=== PATIENT | male | born 1965 | race Caucasian/White ===

== ENCOUNTER → 2020-04-08 | Outpatient (CLI) | payer BC | END | disposition home or self-care (01) | LOC: LAB SHORT 12:00 → PLD 12:00 | DX: C44.319 Basal cell carcinoma of skin of other parts of face (principal); C44.41 Basal cell carcinoma of skin of scalp and neck | CPT/HCPCS: 88305 ==

== ENCOUNTER 2022-08-12 09:10 | Emergency (ER) | payer BC ==
[~2022-08-12] VITALS: Ht 177.8 cm; Wt 106.0 kg
[2022-08-12 09:36] LABS: BASOPHILS ABSOLUTE AUTO 0.05 K/mm3 (0.00-0.23); BASOPHILS PERCENT AUTO 1 % (0-2); EOSINOPHILS ABSOLUTE AUTO 0.23 K/mm3 (0.00-0.68); EOSINOPHILS PERCENT AUTO 3 % (0-6); Hematocrit 44.5 % (37.0-53.0); Hemoglobin 15.4 g/dL (13.5-17.5); IMMATURE GRAN ABSOLUTE AUTO 0.01 K/mm3 (0.00-0.10); IMMATURE GRAN PERCENT AUTO 0 % (0-1); LYMPHOCYTES ABSOLUTE AUTO 1.59 K/mm3 (0.84-5.20); LYMPHOCYTES PERCENT AUTO 22 % (21-46); MONOCYTES ABSOLUTE AUTO 0.62 K/mm3 (0.16-1.47); MONOCYTES PERCENT AUTO 9 % (4-13); Mean Corpuscular HGB 28.4 pg (26.0-34.0); Mean Corpuscular HGB Conc 34.6 g/dL (31.5-36.5); Mean Corpuscular Volume 82 fL (80-100); Mean Platelet Volume 9.8 fL (9.1-12.4); NEUTROPHILS ABSOLUTE AUTO 4.66 K/mm3 (1.96-9.15); NEUTROPHILS PERCENT AUTO 65 % (41-73); Platelet Count 228 K/mm3 (150-400); RDW Coefficient Variation 13.6 % (11.7-14.2); RDW Standard Deviation 40.1 fL (35.1-46.3); Red Blood Cell Count 5.42 M/mm3 (4.30-5.90); White Blood Cell Count 7.16 K/mm3 (4.00-11.30)
[2022-08-12 09:58] LABS: Albumin, Blood 3.7 g/dL (3.4-5.0); Bilirubin, Total 0.8 mg/dL (0.1-1.0); Bun/Creatinine Ratio 18.3 (12.0-20.0); Calcium, Blood 8.9 mg/dL (8.5-10.1); Creatinine, Blood 0.88 mg/dL (0.60-1.20); Globulin, Blood 3.6 g/dL (2.2-4.0); Potassium, Blood 3.8 mmol/L (3.5-5.5); Total Protein, Blood 7.3 g/dL (6.4-8.2)
[2022-08-12 12:05] LABS: Influenza A, PCR NEGATIVE (NEGATIVE); Influenza B, PCR NEGATIVE (NEGATIVE); Resp Syncytial Virus, PCR NEGATIVE (NEGATIVE); SARS-Cov-2 (COVID-19) PCR, MMC NEGATIVE (NEGATIVE)
== END 2022-08-12 11:56 | disposition short-term general hospital (02) ==
LOC: ER 09:10
PROVIDERS: Emergency Medicine
DX: I63.512 Cerebral infarction due to unspecified occlusion or stenosis of left middle cerebral artery (principal); R29.810 Facial weakness; G81.91 Hemiplegia, unspecified affecting right dominant side
CPT/HCPCS: 0241U; 36415; 70450; 70496; 70498; 71045; 80053; 82947; 85025; 85730; 93005; 93010; J3101; Q9967

== ENCOUNTER → 2023-05-30 | Outpatient (CLI) | payer OTHER | LOC: LAB SHORT 12:46 → LAB 12:46 | DX: C44.612 Basal cell carcinoma of skin of right upper limb, including shoulder (principal) | CPT/HCPCS: 88305 ==

== ENCOUNTER → 2023-06-26 | Outpatient (CLI) | payer SELFPAY | LOC: LAB SHORT 11:17 → LAB 11:17 | DX: C44.612 Basal cell carcinoma of skin of right upper limb, including shoulder (principal) | CPT/HCPCS: 88305 ==

== ENCOUNTER 2024-02-25 09:05 | Emergency (ER) | payer OTHER ==
[~2024-02-25] VITALS: Ht 180.3 cm; Wt 129.3 kg
[~2024-02-25 09:05] MED LIST: ATOR10 PO; Cymbalta20 MG PO; ELIQUIS5 M2 PO; HYDCHL25 PO; LISI5 PO; TAMS.4ER PO
[2024-02-25 09:25] VITALS: BP 146/108
[2024-02-25 11:33] LABS: Influenza A, PCR NEGATIVE (NEGATIVE); Influenza B, PCR NEGATIVE (NEGATIVE); Resp Syncytial Virus, PCR NEGATIVE (NEGATIVE); SARS-Cov-2 (COVID-19) PCR, MMC NEGATIVE (NEGATIVE)
== END 2024-02-25 10:39 | disposition home or self-care (01) ==
LOC: ER 09:05
PROVIDERS: Physician Assistant
DX: R05.9 Cough, unspecified (principal); Z79.01 Long term (current) use of anticoagulants; Z79.899 Other long term (current) drug therapy
CPT/HCPCS: 0241U; 71046; 99283-25

== ENCOUNTER 2024-02-26 10:58 | Day surgery (SDC) | payer OTHER ==
[~2024-02-26] VITALS: Ht 180.3 cm; Wt 125.3 kg
[2024-02-26] VITALS (12 sets, daily range): BP systolic 106–139; BP diastolic 66–97
[2024-02-26] MEDS ORDERED: Lactated Ringer's 1,000 ML IV SCH ×2 (11:25→12:00)
[2024-02-26] MEDS ORDERED: Ropivacaine 0.5% HCl/Pf 123.125 MG,EPINEPHrine HCL 0.25 MG,Ketorolac Tromethamine 15 MG... INFIL SCH (11:25)
[2024-02-26] MEDS ORDERED: Chlorhexidine Mouth Care 15 ML UDC MT SCH (11:25)
[2024-02-26] MEDS ORDERED: CeFAZolin Sodium 3,000 MG in NS 100 ML IV SCH ×2 (11:25→21:30)
[2024-02-26] MEDS ORDERED: OxyCODONE HCL 10 MG TABCR PO SCH (11:25)
[2024-02-26] MEDS ORDERED: Acetaminophen 500 MG Tab PO SCH ×2 (11:25→16:00)
[2024-02-26] MEDS ORDERED: Tranexamic Acid 100 ML IV SCH (11:33)
[2024-02-26] MEDS ORDERED: Bisacodyl 10 MG Supp PR PRN (11:50)
[2024-02-26] MEDS ORDERED: OxyCODONE HCL 5 MG TAB PO PRN ×2 (11:50)
[2024-02-26] MEDS ORDERED: Promethazine HCl 25 MG Tab PO PRN (11:50)
[2024-02-26] MEDS ORDERED: HYDROmorphone HCl/Pf 1MG SYR IV PRN (11:55)
[2024-02-26] MEDS ORDERED: Metoclopramide HCl 5MG / ML 2ML Vial IV PRN (11:55)
[2024-02-26] MEDS ORDERED: DiphenhydrAMINE HCL 25 MG Cap PO PRN (11:55)
[2024-02-26] MEDS ORDERED: FLU VACC TS2024-25(6MOS UP)/PF 45 MCG/0.5 ML SYRINGE IM SCH (11:55)
[2024-02-26] MEDS ORDERED: Ondansetron HCl 2 MG / ML 2ML Vial IV PRN (12:00)
[2024-02-26] MEDS ORDERED: Magnesium Hydroxide Conc 10 ML UDC PO PRN (12:00)
--- NOTE | 2024-02-26 12:03 | NUR ---
Pt. is awaiting a knee replacement in the waiting area. Spouse is present when they both welcomed my visit. Both Pt. 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 Facilitated a life review and update and normalized the Pt. experience. Pt. verbalized that he expected to stay overnight after the procedure. Pt. and spouse both verbalized gratitude for the spiritual care visit.
--- NOTE | 2024-02-26 12:14 | NUR ---
Ambulatory in Day Surgery. History, Chart, Medications and Allergies reviewed before start of procedure. Lungs clear T/O to Auscultation. Patient confirms NPO status and agrees with scheduled surgery. Pre-Op teaching done. Pt verbalizes understanding. Patient States Post-Procedure ride home has been arranged. PT BELONGINGS PLACED UNDERNEATH GURNEY FOR SAFEKEEPING. PT GLASSES TAKEN TO PACU FOR SAFEKEEPING.
[2024-02-26] MEDS ORDERED: propofoL 60 ML IV ONE (13:10)
[2024-02-26] MEDS ORDERED: Midazolam HCl 1MG / ML 2ML Vial ONE (13:13)
[2024-02-26] MEDS ORDERED: Phenylephrine HCl 100 MCG/ML-NS 10MLSYR (1MG/10ML) ONE (13:43)
[2024-02-26] MEDS ORDERED: Labetalol HCL 5 MG/ML 4ML Injection (Single Dose) ONE (13:43)
[2024-02-26] MEDS ORDERED: propofoL 40 ML IV ONE ×2 (14:03→15:16)
[2024-02-26] MEDS ORDERED: Ketorolac Tromethamine 15mg Vial IV SCH (18:00)
--- NOTE | 2024-02-26 18:15 | NUR ---
Pt. has returned from his surgery and welcomes my visit. Family members are present. Re-establish rapport and consider matters of family and shravan. Prayed for the Pt. Pt. and family verbalize gratitude [facility] the [facility].
--- NOTE | 2024-02-26 19:42 | NUR ---
SHIFT SUMMARY POD0 R TKA, A/OX4, VSS, TOLERATING PO, DENIES PAIN, ABLE TO AMBULATE TO THE BATHROOM JUST BEFORE SHIFT CHANGE, VOIDED DURING HIS TRIP TO THE BATHROOM, UP TO CHAIR AFTER USING THE BATHROOM. NO ACUTE EVENTS THIS SHIFT, CALL LIGHT IN REACH.
[2024-02-26] MEDS ORDERED: Docusate Sodium 100 MG Cap PO SCH (21:00)
[2024-02-27 00:12] VITALS: BP 119/80
[2024-02-27 03:48] VITALS: BP 129/89
[2024-02-27 05:20] LABS: BASOPHILS ABSOLUTE AUTO 0.04 K/mm3 (0.00-0.23); BASOPHILS PERCENT AUTO 0 % (0-2); EOSINOPHILS ABSOLUTE AUTO 0.34 K/mm3 (0.00-0.68); EOSINOPHILS PERCENT AUTO 4 % (0-6); Hematocrit 39.9 % (37.0-53.0); Hemoglobin 13.8 g/dL (13.5-17.5); IMMATURE GRAN ABSOLUTE AUTO 0.04 K/mm3 (0.00-0.10); IMMATURE GRAN PERCENT AUTO 0 % (0-1); LYMPHOCYTES ABSOLUTE AUTO 1.47 K/mm3 (0.84-5.20); LYMPHOCYTES PERCENT AUTO 15 % (21-46); MONOCYTES ABSOLUTE AUTO 0.93 K/mm3 (0.16-1.47); MONOCYTES PERCENT AUTO 10 % (4-13); Mean Corpuscular HGB 28.5 pg (26.0-34.0); Mean Corpuscular HGB Conc 34.6 g/dL (31.5-36.5); Mean Corpuscular Volume 82 fL (80-100); Mean Platelet Volume 9.2 fL (9.1-12.4); NEUTROPHILS PERCENT AUTO 71 % (41-73); Platelet Count 264 K/mm3 (150-400); RDW Coefficient Variation 13.6 % (11.7-14.2); RDW Standard Deviation 40.8 fL (35.1-46.3); Red Blood Cell Count 4.85 M/mm3 (4.30-5.90); White Blood Cell Count 9.82 K/mm3 (4.00-11.30)
[2024-02-27 05:46] LABS: Bun/Creatinine Ratio 20.2 (12.0-20.0); Calcium, Blood 8.5 mg/dL (8.5-10.1); Creatinine, Blood 1.14 mg/dL (0.60-1.20); Potassium, Blood 3.1 mmol/L (3.5-5.5)
--- NOTE | 2024-02-27 07:50 | NUR ---
SHIFT SUMMARY NOC. PT POD 1 FOR RIGHT TOTAL KNEE. AQUACEL C/D/I WITH BO AND POLR PACK. PT VOIDING URINE. PAIN MANAGED WITH SCHEDULED MEDS. CALL LIGHT IN REACH.
[2024-02-27 07:53] VITALS: BP 119/85
[2024-02-27] MEDS ORDERED: HydroCHLOROthiazide 25 mg Tab PO SCH (09:00)
[2024-02-27] MEDS ORDERED: DULoxetine HCL 20 MG Cap DR PO SCH (09:00)
[2024-02-27] MEDS ORDERED: Tamsulosin HCl 0.4 MG Cap PO SCH (09:00)
[2024-02-27] MEDS ORDERED: Apixaban 5 MG Tab PO SCH (09:00)
[2024-02-27] MEDS ORDERED: Atorvastatin 10 MG Tab PO SCH (09:00)
--- NOTE | 2024-02-27 11:17 | NUR ---
Before the Pt. discharged a visit was made. Spouse is at bedside. Pt. displays evidence of being in good spirits. Considered matters of shravan, belief. Listened with interest and a calming presence. Family verbalized gratitude for the spiritual care visit.
--- NOTE | 2024-02-27 11:35 | NUR ---
DISCHARGE SUMMARY POD1 R TKA, A/OX4, VSS, TOLERATING PO, PAIN WELL MANANGED, VOIDING INDEPENDTLY, VOIDING WELL, WORKED WITH THERAAPY THIS AM, JACK C/D/I WITH BO WRAP IN PLACE. DISCUSSED DISCHARGE INSTRUCTIONS WITH HIM AND HIS INCLUDING HOME CARE, MEDICATIONS, AND FOLLOW UP APPOINTMNETS, IV ACCESS REMOVED DURING DC DISCUSSION. NO QUESTIONS AT THIS TIME, ESCORTED OUT VIA [facility] TO PRIVATE AUTO TO GO HOME.
== END 2024-02-27 11:25 | disposition home or self-care (01) ==
LOC: ORSCMMR 10:58 → ORD 12:30 → SURS 16:20 → ORSCMMR 02-27 11:25
PROVIDERS: Orthopaedic Surgery
PROC: 0SRC0JA Replacement of Right Knee Joint with Synthetic Substitute, Uncemented, Open Approach (ICD-10-PCS; principal; 2024-02-26 12:30)
DX: M17.11 Unilateral primary osteoarthritis, right knee (principal); I10 Essential (primary) hypertension; E78.5 Hyperlipidemia, unspecified; G47.33 Obstructive sleep apnea (adult) (pediatric); Z86.73 Personal history of transient ischemic attack (TIA), and cerebral infarction without residual deficits; Z79.01 Long term (current) use of anticoagulants; E66.9 Obesity, unspecified; Z68.39 Body mass index [BMI] 39.0-39.9, adult; Z79.899 Other long term (current) drug therapy
CPT/HCPCS: 36415; 73560-RT; 80048; 85025; 97110; 97116; 97161; 97530; A9270; C1713; C1776; J0171; J0690; J0735; J1885; J2250; J2371; J2704; J2795; J7120

== ENCOUNTER 2024-05-15 06:18 | Day surgery (SDC) | payer OTHER ==
[2024-05-15] VITALS (15 sets, daily range): BP systolic 101–139; BP diastolic 60–80
[~2024-05-15] VITALS: Ht 180.3 cm; Wt 124.1 kg
[~2024-05-15 06:18] MED LIST changes: +Acetaminophen 500 MG Tab PO SCH; +CeFAZolin Sodium 3,000 MG in NS 100 ML IV SCH; +Chlorhexidine Mouth Care 15 ML UDC MT SCH; +ELIQUIS2.5 MG PO; -ELIQUIS5 M2 PO; +Lactated Ringer's 1,000 ML IV SCH; +OxyCODONE HCL 10 MG TABCR PO SCH; +POTCHL20ER PO; +Ropivacaine 0.5% HCl/Pf 123.125 MG,EPINEPHrine HCL 0.25 MG,Ketorolac Tromethamine 15 MG... INFIL SCH; +Tranexamic Acid 1,000 MG in NS 100 ML IV SCH
[2024-05-15] MEDS ORDERED: Dexmedetomidine HCL 200 MCG / 2 ML ONE (06:27)
[2024-05-15] MEDS ORDERED: Bupivacaine 0.5% Inj 10 ML Vial ONE (06:28)
[2024-05-15] MEDS ORDERED: propofoL 150 ML IV ONE (06:28)
[2024-05-15] MEDS ORDERED: Dexamethasone Sod Phos 10 MG/ML 1ML VIAL ONE (06:38)
[2024-05-15] MEDS ORDERED: Ondansetron HCl 2 MG / ML 2ML Vial ONE (06:38)
[2024-05-15] MEDS ORDERED: Lidocaine HCl 2% 20 ML MDV ONE (06:38)
[2024-05-15] MEDS ORDERED: Ketorolac Tromethamine 30mg Vial ONE (07:00)
[2024-05-15] MEDS ORDERED: FentaNYL Citrate 50 MCG/ML 2 ML Injection ONE (07:20)
--- NOTE | 2024-05-15 07:26 | NUR ---
History, Chart, Medications and Allergies reviewed before start of procedure. Lungs clear T/O to Auscultation. Patient confirms NPO status and agrees with scheduled surgery. Pre-Op teaching done. Pt verbalizes understanding. Patient reports completing Chlorhexadine shower X2 prior to admission to hospital. US USED FOR IV PLACEMENT BY KEMAR DENNISON.
[2024-05-15] MEDS ORDERED: HYDROmorphone HCl/Pf 1MG SYR IV PRN (08:05)
[2024-05-15] MEDS ORDERED: FLU VACC TS2024-25(6MOS UP)/PF 45 MCG/0.5 ML SYRINGE IM SCH (08:05)
[2024-05-15] MEDS ORDERED: DiphenhydrAMINE HCL 25 MG Cap PO PRN (08:10)
[2024-05-15] MEDS ORDERED: Magnesium Hydroxide Conc 10 ML UDC PO PRN (08:10)
[2024-05-15] MEDS ORDERED: Promethazine HCl 25 MG Tab PO PRN (08:10)
[2024-05-15] MEDS ORDERED: Ondansetron HCl 2 MG / ML 2ML Vial IV PRN (08:10)
[2024-05-15] MEDS ORDERED: Metoclopramide HCl 5MG / ML 2ML Vial IV PRN (08:10)
[2024-05-15] MEDS ORDERED: Lactated Ringer's 1,000 ML IV SCH (08:10)
[2024-05-15] MEDS ORDERED: OxyCODONE HCL 5 MG TAB PO PRN ×2 (08:15)
[2024-05-15] MEDS ORDERED: Bisacodyl 10 MG Supp PR PRN (08:15)
--- NOTE | 2024-05-15 10:57 | NUR ---
TRANSFER TO UNIT AFTER RECEIVING REPORT FROM BAG BUILDER, PATIENT TRANSFERRED TO UNIT AT APPROX 1040. PATIENT ALERT AND ORIENTED X4. COMMUNICATES NEEDS EFFECTIVELY. VSS. CURRENTLY ON 2L VIA NC, SATs 93-95%. ROOM AIR AT BASELINE. ENCOURAGING COUGH AND DEEP BREATHING EXERCISES. S/P L TKA - DRESSING C/D/I. NO SHADOWING NOTED ON BO WRAP. PPP. REPORTS FULL SENSATION POST SPINAL - ABLE TO MOVE BLE. DENIES PAIN. COOLING DEVICE IN PLACE. LR INFUSING TO GRAVITY. TOLERATING SMALL SIPS OF WATER. SNACKS PROVIDED. CALL LIGHT IN REACH.
[2024-05-15] MEDS ORDERED: Ketorolac Tromethamine 15mg Vial IV SCH (12:00)
[2024-05-15] MEDS ORDERED: CeFAZolin Sodium 3,000 MG in NS 100 ML IV SCH (15:45)
[2024-05-15] MEDS ORDERED: Acetaminophen 500 MG Tab PO SCH (16:00)
--- NOTE | 2024-05-15 17:37 | NUR ---
SHIFT SUMMARY NO ACUTE EVENTS SINCE PREVIOUS NOTE. PATIENT REMAINS ALERT AND ORIENTED X4. COMMUNICATING NEEDS EFFECTIVELY. VSS. TOLERATING ROOM AIR, SATs >90%. S/P L TKA - DRESSING C/D/I. NO SHADOWING NOTED ON BO WRAP. TOLERATING PO INTAKE - SALINE LOCKED. PAIN TOLERABLE WITH SCHEDULED MEDICATION AND COOLING DEVICE. WORKED WITH PHYSICAL THERAPY - CLEAR TO DC HOME. AWAITING POST OP VOID - BLADDER SCAN PERFORMED AT 1630 SHOWING 250ML. PATIENT UNABLE TO VOID AFTER MULTIPLE ATTEMPTS. CALL LIGHT IN REACH. PATIENT CURRENTLY SITTING IN RECLINER. AT BEDSIDE. WILL CONTINUE TO MONITOR AND REPORT TO ONCOMING RN.
[2024-05-15] MEDS ORDERED: Docusate Sodium 100 MG Cap PO SCH (21:00)
[2024-05-16 00:22] VITALS: BP 115/71
--- NOTE | 2024-05-16 04:46 | NUR ---
SHIFT SUMMARY. ELAYNE WAS ALERT AND FULLY ORIENTED ON ASSESMENT. POD 1 LTKA. DRESSING C/D/I, NO SATURATION NOTED TO BANDAGE. VSS, PT VOIDING APPROPRIATELY. DISTAL CIRCULATION TO LLE INTACT, PT ABLE TO FEEL AND WIGGLE TOES. NO ACUTE EVENTS TONIGHT, NO NOTED CHANGES TO PT CONDITION. PT RESTING IN BED WITH CALL LIGHT IN REACH.
[2024-05-16 04:48] VITALS: BP 125/75
[2024-05-16 05:05] LABS: BASOPHILS ABSOLUTE AUTO 0.02 K/mm3 (0.00-0.23); BASOPHILS PERCENT AUTO 0 % (0-2); EOSINOPHILS ABSOLUTE AUTO 0.01 K/mm3 (0.00-0.68); EOSINOPHILS PERCENT AUTO 0 % (0-6); Hemoglobin 12.6 g/dL (13.5-17.5); IMMATURE GRAN ABSOLUTE AUTO 0.07 K/mm3 (0.00-0.10); IMMATURE GRAN PERCENT AUTO 1 % (0-1); LYMPHOCYTES ABSOLUTE AUTO 1.08 K/mm3 (0.84-5.20); LYMPHOCYTES PERCENT AUTO 8 % (21-46); MONOCYTES ABSOLUTE AUTO 0.93 K/mm3 (0.16-1.47); MONOCYTES PERCENT AUTO 7 % (4-13); Mean Corpuscular HGB 26.5 pg (26.0-34.0); Mean Corpuscular HGB Conc 33.2 g/dL (31.5-36.5); Mean Corpuscular Volume 80 fL (80-100); NEUTROPHILS ABSOLUTE AUTO 11.65 K/mm3 (1.96-9.15); NEUTROPHILS PERCENT AUTO 85 % (41-73); Platelet Count 233 K/mm3 (150-400); RDW Coefficient Variation 13.8 % (11.7-14.2); RDW Standard Deviation 39.8 fL (35.1-46.3); Red Blood Cell Count 4.75 M/mm3 (4.30-5.90); White Blood Cell Count 13.76 K/mm3 (4.00-11.30)
[2024-05-16 06:00] LABS: Bun/Creatinine Ratio 18.4 (12.0-20.0); Calcium, Blood 8.8 mg/dL (8.5-10.1); Creatinine, Blood 0.98 mg/dL (0.60-1.20); Potassium, Blood 4.1 mmol/L (3.5-5.5)
[2024-05-16] MEDS ORDERED: CeFAZolin Sodium 2,000 MG in NS 100 ML IV ONE (06:20)
[2024-05-16 07:04] VITALS: BP 126/69
[2024-05-16] MEDS ORDERED: Potassium Chloride 20 MEQ TabCR PO SCH (09:00)
[2024-05-16] MEDS ORDERED: HydroCHLOROthiazide 25 mg Tab PO SCH (09:00)
[2024-05-16] MEDS ORDERED: DULoxetine HCL 20 MG Cap DR PO SCH (09:00)
[2024-05-16] MEDS ORDERED: Tamsulosin HCl 0.4 MG Cap PO SCH (09:00)
[2024-05-16] MEDS ORDERED: Atorvastatin 10 MG Tab PO SCH (09:00)
[2024-05-16] MEDS ORDERED: Apixaban 5 MG Tab PO SCH (09:00)
--- NOTE | 2024-05-16 09:02 | NUR ---
DISCHARGE: PT CLEARED BY THERAPY. PAIN CONTROLED, PT IS AMBULATING, VOIDING AND SURGICAL SITE WNL. PACKET PRINTED AND PT EDUCATED. IV DC'D WNL TIP INTACT.
--- NOTE | 2024-05-16 09:47 | NUR ---
DISCHARGE COMPLETE, PT LEFT UNIT AT ABOUT 0964
== END 2024-05-16 09:30 | disposition home or self-care (01) ==
LOC: ORSCMMR 06:18 → ORD 07:30 → ORSCMMR 07:30 → SURS 10:44 → ORSCMMR 05-16 09:30
PROVIDERS: Orthopaedic Surgery
PROC: 0SRD0JA Replacement of Left Knee Joint with Synthetic Substitute, Uncemented, Open Approach (ICD-10-PCS; principal; 2024-05-15 07:30)
DX: M17.12 Unilateral primary osteoarthritis, left knee (principal); Z96.651 Presence of right artificial knee joint; I10 Essential (primary) hypertension; E78.5 Hyperlipidemia, unspecified; Z79.899 Other long term (current) drug therapy; Z79.01 Long term (current) use of anticoagulants; E66.9 Obesity, unspecified; Z68.38 Body mass index [BMI] 38.0-38.9, adult; Z86.73 Personal history of transient ischemic attack (TIA), and cerebral infarction without residual deficits
CPT/HCPCS: 36415; 73560-LT; 80048; 85025; 97110; 97116; 97162; A9270; C1713; C1776; J0171; J0690; J0735; J1100; J1885; J2405; J2704; J2795; J3010; J7120